=== PATIENT | female | born 1975 | race Two or more races ===

== ENCOUNTER 2016-05-05 10:51 | Emergency (ER) | payer BC ==
[~2016-05-05] VITALS: Ht 160 cm; Wt 75.3 kg
[~2016-05-05 10:51] MED LIST: ENDOCET 5-3251 EACH PO; MOTRIN800 MG PO; Motrin PO; NAPROSYN500 MG PO
[2016-05-05 11:31] LABS: BILIRUBIN NEGATIVE; BLOOD NEGATIVE; COLOR YELLOW ((YELLOW)); GLUCOSE (STRIP) NEGATIVE; KETONES NEGATIVE; LEUKOCYTES NEGATIVE; NITRITE NEGATIVE; PH, URINE 6.5 (5-8); PROTEIN (STRIP) NEGATIVE; SPECIFIC GRAVITY 1.019 (1.000-1.030); UROBILINOGEN 0.2 MG/DL (0.2-1.0)
[2016-05-05 11:33] LABS: ADD MIUA? NO; UCUL ADDED? NO
[2016-05-05 11:44] LABS: HEMATOCRIT 37.9 % (36.0-46.0); MCH 28.2 PG (29.0-34.0); MCHC 33.5 G/DL (30.0-36.0); MEAN PLAT.VOLUME 9.8 uM^3 (9.5-12.4); PLATELET COUNT 304 K/uL (156-360); RBC DIS.WIDTH-CV 13.5 % (11.8-14.6); RBC DIS.WIDTH-SD 40.7 % (39-53); RED BLOOD COUNT 4.51 M/uL (3.80-5.20); WHITE BLOOD COUNT 12.9 K/uL (4.1-10.2)
[2016-05-05 12:04] LABS: CHLORIDE 107 mEq/L (99-109); POTASSIUM 3.9 mEq/L (3.7-5.4); SODIUM 138 mEq/L (136-147)
[2016-05-05 12:06] LABS: GLUCOSE 112 mg/dL (70-99)
[2016-05-05 12:07] LABS: ANION GAP 8 MEQ/L (2-14)
[2016-05-05 12:08] LABS: TOTAL BILIRUBIN 0.4 mg/dL (0.0-1.0)
[2016-05-05 12:09] LABS: ALKALINE PHOSPHATASE 65 IU/L (3-129)
[2016-05-05 12:10] LABS: GFR ESTIMATE (CALCULATED) > 59 mL/min/
[2016-05-05 12:11] LABS: UREA NITROGEN (BUN) 13 mg/dL (9-23)
[2016-05-05 12:13] LABS: LIPASE 33 U/L (1.0-51.0)
[2016-05-05 12:19] LABS: QUANTITATIVE HCG < 4.0 MIU/ML
[2016-05-05] MEDS ORDERED: ZOFRAN ODT4 MG PO (15:20)
[2016-05-05 15:30] VITALS: BP 97/56
== END 2016-05-05 15:37 | disposition left against medical advice (07) ==
LOC: EME 10:51
DX: R10.11 Right upper quadrant pain (principal); Z88.6 Allergy status to analgesic agent
CPT/HCPCS: 76705; 80053; 81003; 83690; 84702; 85027; 99281; 99284; J2270; J2405